=== PATIENT | female | born 1970 | race American Indian/Alaskan Native ===

== ENCOUNTER 2018-06-23 16:41 | Emergency (ER) | payer BC, OTHER ==
--- NOTE | 2018-06-23 16:44 | Emergency Department Report ---
Blank Doc - Documentation Documentation: 47 y o female with no known hx presents via EMS with possibly stroke FAST exam Negative No neuro deficit at the moment pt was aBLE TO SPEAK CLEARLY. sTOKE PROTOCOL ORDERED Pt taken to CT stat [id number]
--- NOTE | 2018-06-23 17:04 | Cat Scan Report ---
FINAL REPORT EXAM: CT HEAD WO CONTRAST HISTORY: CODE STROKE, STROKE SYMPTOMS TECHNIQUE: CT of the Head without IV contrast. PRIORS: None currently available. FINDINGS: There is no evidence for acute ischemia. There is no hemorrhage. There is no midline shift. There is no hydrocephalus. There is no mass. Age appropriate iyer-white matter attenuation is noted. There is no calvarial fracture. The temporal bones demonstrate aerated mastoid air cells. The middle ears appear unremarkable. Paranasal sinuses are unremarkable. Globes are intact. IMPRESSION: No acute intracranial findings.
[2018-06-23] MEDS ORDERED: ATIVAN PO ONE (17:07)
--- NOTE | 2018-06-23 17:13 | Emergency Department Report ---
ED Chest Pain HPI - General Chief Complaint: Neuro Symptoms/Deficit Stated Complaint: POSS STROKE Time Seen by Provider: 06/23/18 16:44 Source: patient Mode of arrival: Ambulatory Limitations: No Limitations - History of Present Illness Initial Comments: 47-year-old female states she was leaving work, driving in her car, and suddenly began to experience generalized tremors, chest pain, palpitations, dizziness. Patient was driving to an appointment with her employer to discuss filing for bankruptcy. Patient states she was unable to fill out the paperwork because her hands were shaking so badly. Patient states that time, one of the shell mold bonding machine operator in the office offered to bring her to the ED. Patient states she has had similar episodes in the past, and has been diagnosed with anxiety. States that she was on medication at one point in time, however, does not remember the name of the medicine and is not currently taking it.Patient states has been under a lot of stress lately. MD Complaint: chest pain -: This afternoon Onset: during rest Pain Location: substernal Pain Radiation: none Severity: mild Quality: pressure Consistency: now resolved Improves With: nothing Worsens With: nothing re: denies: nausea, vomting, diaphoresis, dyspnea Other Symptoms: palpitations. denies: leg swelling - Related Data Previous Rx's Medication Instructions Recorded Last Taken Type Cyclobenzaprine [Flexeril] 10 mg PO TID PRN #30 tablet 03/27/15 Unknown Rx HYDROcodone/APAP 5-325 [[place] 1 each PO Q6HR PRN #20 tablet 03/27/15 Unknown Rx 5/325] Ibuprofen [Motrin] 600 mg PO Q8H PRN #50 tablet 03/27/15 Unknown Rx LORazepam [Ativan] 0.5 mg PO BID PRN #10 tab 06/23/18 Unknown Rx Allergies Allergy/AdvReac Type Severity Reaction Status Date / Time No Known Allergies Allergy Verified 03/18/15 02:13 Heart Score - HEART Score History: Slightly suspicious EKG: Normal Age: 45-65 Risk factors: 1-2 risk factors Troponin: < normal limit HEART Score: 2 - Critical Actions Critical Actions: 0-3 pts:0.9-1.7%risk of adverse cardiac event.Candidate for discharge ED Review of Systems ROS: Stated complaint: POSS STROKE Other details as noted in HPI Comment: All other systems reviewed and negative Respiratory: denies: shortness of breath Cardiovascular: chest pain, palpitations Gastrointestinal: denies: nausea, vomiting Musculoskeletal: other (denies leg pain or swelling) Neurological: other (reports dizziness) ED Past Medical Hx - Past Medical History Hx Psychiatric Treatment: Yes (anxiety) - Surgical History Additional Surgical History: foot surgery - Social History Smoking Status: Current Every Day Smoker Substance Use Type: None - Medications Home Medications: Home Medications Medication Instructions Recorded Confirmed Last Taken Type Cyclobenzaprine [Flexeril] 10 mg PO TID PRN #30 tablet 03/27/15 Unknown Rx HYDROcodone/APAP 5-325 [[place] 1 each PO Q6HR PRN #20 tablet 03/27/15 Unknown Rx 5/325] Ibuprofen [Motrin] 600 mg PO Q8H PRN #50 tablet 03/27/15 Unknown Rx LORazepam [Ativan] 0.5 mg PO BID PRN #10 tab 06/23/18 Unknown Rx ED Physical Exam - General Limitations: No Limitations General appearance: alert, in no apparent distress, anxious, other (pt is tremulous) - Head Head exam: Present: atraumatic, normocephalic - Eye Eye exam: Present: normal appearance - ENT ENT exam: Present: mucous membranes moist - Neck Neck exam: Present: normal inspection - Respiratory Respiratory exam: Present: normal lung sounds bilaterally. Absent: respiratory distress - Cardiovascular Cardiovascular Exam: Present: regular rate, normal rhythm - GI/Abdominal GI/Abdominal exam: Present: soft. Absent: distended, tenderness - Extremities Exam Extremities exam: Present: normal inspection. Absent: pedal edema, calf tenderness - Neurological Exam Neurological exam: Present: alert, oriented X3, CN II-XII intact. Absent: motor sensory deficit - Psychiatric Psychiatric exam: Present: normal affect, normal mood - Skin Skin exam: Present: warm, dry, intact, normal color ED Course Vital Signs 06/23/18 06/23/18 06/23/18 16:56 17:00 17:15 Temperature Pulse Rate 106 H 99 H 85 Respiratory 15 14 12 Rate Blood Pressure 155/87 Blood Pressure [Left] O2 Sat by Pulse 100 100 99 Oximetry 06/23/18 06/23/18 06/23/18 17:30 17:31 17:40 Temperature 98.3 F 98.3 F Pulse Rate 74 85 85 Respiratory 13 12 12 Rate Blood Pressure 170/77 158/87 Blood Pressure 158/87 [Left] O2 Sat by Pulse 100 99 99 Oximetry 06/23/18 06/23/18 19:14 19:15 Temperature Pulse Rate 77 74 Respiratory Rate Blood Pressure 142/91 Blood Pressure [Left] O2 Sat by Pulse 100 100 Oximetry - Reevaluation(s) Reevaluation #1: 06/23/18 18:39 Patient feeling much better at this time. Tremors have resolved. ED Medical Decision Making - Lab Data Result diagrams: 06/23/18 16:55 06/23/18 16:55 - EKG Data -: EKG Interpreted by Or EKG shows normal: sinus rhythm, axis, intervals, QRS complexes, ST-T waves Rate: normal - EKG Data Interpretation: no acute changes - Radiology Data Radiology results: report reviewed, image reviewed CXR nml. - Medical Decision Making 47-year-old female with anxiety attack. Stroke alert was initially called on patient, however patient neurologically intact. No neuro deficits present. Patient has history of anxiety in the past. He has been quite stressed recently, likely positive today's anxiety attack. Patient improved with 1 dose of 1 mg of Ativan. Workup unremarkable. CT head, chest x-ray, labs, EKG normal. Patient advised to follow up in outpatient setting. Return precautions given. - Differential Diagnosis anxiety, ACS, CVA Critical care attestation.: If time is entered above; I have spent that time in minutes in the direct care of this critically ill patient, excluding procedure time. ED Disposition Clinical Impression: Anxiety Disposition: DC-01 TO HOME OR SELFCARE Is pt being admited?: No Condition: Stable Instructions: Anxiety (ED) Prescriptions: LORazepam [Ativan] 0.5 mg PO BID PRN #10 tab PRN Reason: Anxiety Referrals: [facility] [Provider Group] - 3-5 Days SALEEM ACOSTA MD [Staff Physician] - 3-5 Days [facility] [Outside] - 3-5 Days Time of Disposition: 18:41
[2018-06-23 17:19] LABS: Hematocrit 27.3 % (30.3-42.9); Hemoglobin 8.3 gm/dl (10.1-14.3); Mean Corpuscular HGB Conc 30 % (30-34); Platelet Count 464 K/mm3 (140-440); Red Blood Count 4.18 M/mm3 (3.65-5.03)
[2018-06-23 17:20] LABS: Basophils # (Auto) 0.1 K/mm3 (0.0-0.1); Basophils % (Auto) 1.5 % (0.0-1.8); Eosinophils # (Auto) 0.1 K/mm3 (0.0-0.4); Eosinophils % (Auto) 2.7 % (0.0-4.3); Lymphocytes # (Auto) 2.9 K/mm3 (1.2-5.4); Lymphocytes % (Auto) 51.6 % (13.4-35.0); Mean Corpuscular Volume 65 fl (79-97); Monocytes # (Auto) 0.4 K/mm3 (0.0-0.8); Monocytes % (Auto) 6.5 % (0.0-7.3); Red Cell Distribution Width 22.5 % (13.2-15.2)
[2018-06-23 17:32] LABS: Partial Thromboplastin Time 27.7 Sec. (24.2-36.6)
[2018-06-23 17:33] LABS: BUN/Creatinine Ratio 26; Blood Urea Nitrogen 13 mg/dL (7-17); Calcium 8.7 mg/dL (8.4-10.2); Hemolysis Index 1
[2018-06-23 19:47] VITALS: BP 154/97
--- NOTE | 2018-06-23 20:08 | XRay Report ---
FINAL REPORT PROCEDURE: XRAY CHEST SINGLE VIEW TECHNIQUE: Chest radiograph anteroposterior view. CPT 89589 HISTORY: chest pain COMPARISON: No prior studies are available for comparison. FINDINGS: Heart: Cardiac silhouette is mildly prominent Mediastinum/Vessels: Normal. Lungs/Pleural space: No infiltrate, effusion, or pneumothorax. Bony thorax: No acute osseous abnormality. Life support devices: None. IMPRESSION: No radiographic evidence of acute cardiopulmonary abnormality.
== END 2018-06-23 19:54 | disposition home or self-care (01) ==
LOC: ED 16:41
DX: F41.9 Anxiety disorder, unspecified (principal); R42 Dizziness and giddiness; F17.200 Nicotine dependence, unspecified, uncomplicated; I63.9 Cerebral infarction, unspecified
CPT/HCPCS: 36415; 70450; 71045; 80048; 82962; 84484; 85025; 85610; 85670; 85730; 93005; 93010

== ENCOUNTER 2018-08-11 18:39 | Emergency (ER) | payer OTHER ==
--- NOTE | 2018-08-11 19:01 | Emergency Department Report ---
Blank Doc - Documentation Documentation: This is a 47-year-old female that presents with left arm pain, left lateral rib pain, headache, with right eye swelling. Agrees to LOC. Denies any neck pain. This initial assessment/diagnostic orders/clinical plan/treatment(s) is/are subject to change based on patient's health status, clinical progression and re- assessment by fellow clinical providers in the ED. Further treatment and workup at subsequent clinical providers discretion. Patient/guardians urged not to trevor pe from the ED as their condition may be serious if not clinically assessed and managed. Initial orders include: 1- Patient sent to MAIN ED for further evaluation and treatment 2- labs 3- CT/Xrays 4- UA 5- managed care manager was notified to have the patient be brought back [facility].
[2018-08-11 19:46] LABS: Hematocrit 27.5 % (30.3-42.9); Hemoglobin 8.4 gm/dl (10.1-14.3); Mean Corpuscular HGB Conc 31 % (30-34); Platelet Count 285 K/mm3 (140-440); Red Blood Count 4.33 M/mm3 (3.65-5.03)
[2018-08-11 19:48] LABS: Alanine Aminotransferase 19 units/L (7-56); Albumin 4.7 g/dL (3.9-5); BUN/Creatinine Ratio 13; Blood Urea Nitrogen 8 mg/dL (7-17); Calcium 9.5 mg/dL (8.4-10.2); Hemolysis Index 0
[2018-08-11 19:50] LABS: Bilirubin,Direct < 0.2 mg/dL (0-0.2)
[2018-08-11 19:54] LABS: Mean Corpuscular Volume 64 fl (79-97); Red Cell Distribution Width 24.4 % (13.2-15.2)
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
[2018-08-11] MEDS ORDERED: ZOFRAN IV ONE (20:32)
[2018-08-11] MEDS ORDERED: SUBLIMAZE IV ONE (20:32)
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
[2018-08-11 21:16] LABS: Hypochromasia 3+; Large Platelets 1+; Target Cells 1+; Total Cells Counted 100
[2018-08-11 21:17] LABS: Ovalocytes 1+; Schistocytes Rare; Tear Drop Cells 1+
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
[2018-08-11 21:18] LABS: Platelet Estimate Consistent w Auto
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
[2018-08-11 22:16] VITALS: BP 192/98
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
== END 2018-08-12 | disposition home or self-care (01) ==
LOC: ED 18:39
DX: S16.1XXA Strain of muscle, fascia and tendon at neck level, initial encounter (principal); S20.212A Contusion of left front wall of thorax, initial encounter; S09.90XA Unspecified injury of head, initial encounter; V49.49XA Driver injured in collision with other motor vehicles in traffic accident, initial encounter; Y93.89 Activity, other specified; Y92.488 Other paved roadways as the place of occurrence of the external cause; Y99.8 Other external cause status
CPT/HCPCS: 36415; 70450; 70486; 71101; 71250; 72125; 73060; 73090; 74177; 80048; 80076; 83690; 85007; 85025; 96374; 96375; 99284; J2405; J3010; Q9967